=== PATIENT | male | born 1975 | race Caucasian/White ===

== ENCOUNTER 2020-05-14 15:11 | Emergency (ER) | payer BC, OTHER, SELFPAY ==
--- NOTE | ~2020-05-14 | XR_ITS ---
EXAMINATION: XR chest 2V DATE: 05/14/2020 16:06 INDICATION: Worsening heartburn and left arm numbness TECHNIQUE: PA and lateral views of the chest were obtained. COMPARISON: Chest radiograph dated 09/27/2015 FINDINGS: The lungs remain clear with no focal airspace opacities, pulmonary edema, pleural effusion or pneumot horax. The cardiomediastinal silhouette is normal. Visualized bones and soft tissues are unremarkable . IMPRESSION: 1. No acute cardiopulmonary disease. Reviewed, dictated and finalized at location A. [facility]
--- NOTE | 2020-05-14 15:21 | ECG_ITS ---
Measurements Intervals [place] Rate: 46 P: 26 IA: 235 QRS: -32 QRSD: 112 T: 40 QT: 446 QTc: 393 Interpretive Statements SINUS BRADYCARDIA WITH FIRST DEGREE AV BLOCK ATRIAL PREMATURE COMPLEXES LEFT AXIS DEVIATION INCOMPLETE RIGHT BUNDLE BRANCH BLOCK BORDERLINE R WAVE PROGRESSION, ANTERIOR LEADS ABNORMAL ECG Electronically Signed On 05-14-2020 15:29:58 [employer] by Terrance Coleman D.O.
[2020-05-14 15:27] VITALS: BP 150/86; PULSE 44; RESP 18; TEMP 36.6; O2SAT 99
[2020-05-14 15:42] LABS: Basophils Percent Auto 0.4 % (0.2-1.2); Eosinophils Absolute Auto 0.1 K/mm3 (0-0.3); Hematocrit 46.1 % (42.0-52.0); Hemoglobin 15.4 g/dL (14.0-18.0); Immature Granulocyte Absolute 0.01 K/mm3 (0.00-0.031); Immature Granulocyte Percent A 0.2 % (0-0.5); Lymphocytes Absolute Auto 2.02 K/mm3 (0.9-3.2); Lymphocytes Percent Auto 40.9 % (18.3-44.2); Mean Corpuscular HGB Conc 33.4 g/dl (32-36); Mean Corpuscular Hemoglobin 29.1 pg (26-34); Mean Corpuscular Volume 87.1 fl (80-100); Mean Platelet Volume 10.7 fl (7.4-10.4); Monocytes Absolute Auto 0.5 K/mm3 (0.1-0.6); Monocytes Percent Auto 10.3 % (2.6-8.5); Neutrophils Absolute Auto 2.3 K/mm3 (1.3-6.7); Neutrophils Percent Auto 46.2 % (45.5-73.1); Platelet Count Result 200 k/mm3 (150-375); Red Blood Count 5.29 M/mm3 (4.6-6.20); Red Cell Distribution Width 12.4 % (11.5-14.5); White Blood Count 4.9 K/mm3 (4.5-10.0)
[2020-05-14] MEDS: ASPIRIN 81 MG CHEWABLE TABLET 324 MG PO (15:50)
[2020-05-14 15:51] LABS: INR 0.9; Prothrombin Time 12.8 Seconds (11.1-14.7)
[2020-05-14 15:52] LABS: Partial Thromboplastin Time 27.2 SECONDS (22.3-36.8)
[2020-05-14 15:54] LABS: Anion Gap 6 mmol/L (8-16); Blood Urea Nitrogen 22 mg/dL (9-20); Calcium 9.1 mg/dL (8.4-10.2); Carbon Dioxide 30 mmol/L (22-30); Chloride 104 mmol/L (98-107); Estimated CRCL calculation 69 ml/min; Estimated Glomerular Filt Rate 51; Glucose 93 mg/dL (75-110); Potassium 4.1 mmol/L (3.4-5.0); Sodium 140 mmol/L (137-145)
[2020-05-14 16:04] LABS: Troponin I < 0.012 ng/mL (0.000-0.034)
[2020-05-14 16:06] VITALS: PULSE 44
[2020-05-14] MEDS: FAMOTIDINE 20 MG TABLET PO (16:32)
--- NOTE | 2020-05-14 17:11 | ED.CHESTPAIN ---
HPI - Chest Pain General Chief Complaint: Chest Pain Stated Complaint: Chest Pain Time Seen by Provider: 05/14/20 15:48 Source: patient Mode of arrival: ambulatory Limitations: no limitations History of Present Illness HPI narrative: Patient is a 44-year-old male who presents to emergency department for evaluation of midsternal chest discomfort that has been regular for 6 months described as reflux in nature has taken Tums with improvement notes increasing pain of late patient has not been seen for this patient denies any URI symptoms shortness of breath fever and is otherwise resting comfortably in the room in no distress upon arrival patient Related Data Allergies Allergy/AdvReac Type Severity Reaction Status Date / Time No Known Allergies Allergy Unknown Verified 09/27/15 10:59 [facility] Family History Family History (Updated 10/02/15 @ 08:40 by DOCTOR UNKNOWN) Other Family history of coronary artery disease Family history of lymphoma Family history of malignant neoplasm of breast in first degree relative Social History Social History Smoking status: Never smoker Alcohol intake: current Gender identity (if verbalized by the patient): Male Course Course Emergency Course: Patient evaluated for 6 months duration midsternal intermittent chest pain described as reflux related given the chronicity and duration patient will be referred back to primary care and gastroenterology for further evaluation patient will be tried on a course PPIs in the interim given reasons to return no high risk changes in the blood work or imaging or evaluation today Vital Signs Vital signs: Vital Signs Temperature 97.8 F 05/14/20 15:27 Pulse Rate 44 L 05/14/20 15:27 Respiratory Rate 18 05/14/20 15:27 Blood Pressure 150/86 H 05/14/20 15:27 Pulse Oximetry 99 05/14/20 15:27 Temperature 97.8 F 05/14/20 15:27 Pulse Rate 44 L 05/14/20 16:06 Respiratory Rate 18 05/14/20 15:27 Blood Pressure 150/86 H 05/14/20 15:27 Pulse Oximetry 99 05/14/20 15:27 MDM - Chest Pain MDM Narrative Medical decision making narrative: Patients EKGs and labs are without significant high risk changes. Cardiac risk factors were reviewed. Patient is felt likely to be low risk for ACS and reasonable for further risk stratification testing as an outpatient. Pain was not sudden or maximal in onset without tearing or ripping. quality. No other signs or symptoms to suggest aortic dissection. A low-risk Wells criteria is noted. PE is felt to be unlikely. No pneumonia or URI symptoms were seen on evaluation today. Patient is felt to be reasonable for continued evaluation as an outpatient. 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 will be referred to gastroenterology and back to primary care for further evaluation Lab Data Result diagrams: 05/14/20 15:33 05/14/20 15:33 Labs: Lab Results 05/14/20 05/14/20 05/14/20 Range/Units 15:33 15:33 15:33 WBC 4.9 (4.5-10.0) K/mm3 RBC 5.29 (4.6-6.20) M/mm3 Hgb 15.4 (14.0-18.0) g/dL Hct 46.1 (42.0-52.0) % MCV 87.1 (80-100) fl MCH 29.1 (26-34) pg MCHC 33.4 (32-36) g/dl RDW 12.4 (11.5-14.5) % Plt Count 200 (150-375) k/mm3 MPV 10.7 H (7.4-10.4) fl Immature Gran % (Auto) 0.2 (0-0.5) % Neut % (Auto) 46.2 (45.5-73.1) % Lymph % (Auto) 40.9 (18.3-44.2) % [place] % (Auto) 10.3 H (2.6-8.5) % Eos % (Auto) 2.0 (0-4.4) % Baso % (Auto) 0.4 (0.2-1.2) % Lymph # (Auto) 2.02 (0.9-3.2) K/mm3 [place] # (Auto) 0.5 (0.1-0.6) K/mm3 Eos # (Auto) 0.1 (0-0.3) K/mm3 Baso # (Auto) 0.0 (0.0-0.1) K/mm3 Abs Immat Gran (auto) 0.01 (0.00-0.031) K/mm3 Absolute Neuts (auto) 2.3 (1.3-6.7) K/mm3 Absolute Nucleated RBC 0.0 (0.0-0.012) K/mm3 Nucleated RBC % 0.0 (0.0-0.2) % PT 12.8 (11.1-14.7) Seconds INR 0.9 APTT 27.2 (22.3-36.8) SECONDS Sodium 140 (137-145) mm
[2020-05-14 18:18] VITALS: BP 121/61; PULSE 48; RESP 16; O2SAT 100
== END 2020-05-14 18:20 | disposition home or self-care (01) ==
PROVIDERS: Emergency Medicine; Emergency Provider Emergency Medicine; PCP Family Medicine
DX: R07.2 Precordial pain (principal); R00.1 Bradycardia, unspecified; I44.0 Atrioventricular block, first degree; I49.1 Atrial premature depolarization; I45.10 Unspecified right bundle-branch block; R94.31 Abnormal electrocardiogram [ECG] [EKG]
CPT/HCPCS: 36415; 71046; 80048; 84484; 85025; 85610; 85730; 93005; 99284; A9270

== ENCOUNTER 2022-09-14 23:47 | Emergency (ER) | payer BC, SELFPAY ==
--- NOTE | ~2022-09-14 | XR_ITS ---
Left Hand Technique: PA, oblique, and lateral views were obtained. Clinical History: Aspiration Findings: No acute fracture or dislocation is seen. Osseous alignment is anatomic. Joint spaces are p reserved. Soft tissues are unremarkable. Impression: Unremarkable left hand. Reviewed, dictated and finalized at location M. Impression: Unremarkable left hand.
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
--- NOTE | ~2022-09-14 | XR_ITS ---
AP view of the pelvis and AP and lateral views of the right hip Clinical history: Pain Findings: No acute fracture or dislocation is seen. Osseous alignment is anatomic. Bilateral hip and SI joint spaces are preserved. Soft tissues are unremarkable. Impression: No significant abnormality is seen. Reviewed, dictated and finalized at [facility]. Impression: No significant abnormality is seen.
--- NOTE | ~2022-09-14 | CT_ITS ---
Noncontrast CT scan of the cervical spine Technique: Multiple contiguous axial [address] images of the cervical spine were obtained and rec onstructed in 2D sagittal and coronal planes on the acquisition scanner. Dose reduction technique was used on this scan by utilizing automated exposure control, adjustment of the mA and/or kV according to patient size. Clinical History: Pain Findings: There is mild reversal normal cervical lordosis. No fracture or subluxation evident. There are mild degenerative disc changes in the cervical spine, worst at C6-C7. There is probable mild righ t neural foraminal narrowing and mild central canal stenosis at C6-C7. No prevertebral soft tissue sw elling. Impression: No fracture or subluxation of the cervical spine. Reversal of the normal cervical lordosis. [id number] degenerative spondylosis at C6-C7, as detailed above. Reviewed, dictated and finalized at [facility]. Impression: No fracture or subluxation of the cervical spine. Reversal of the normal cervical lordosis. [id number] degenerative spondylosis at C6-C7, as detailed above.
[2022-09-14 23:50] VITALS: BP 136/80; PULSE 61; RESP 18; TEMP 36.6; O2SAT 96
[2022-09-15] MEDS: ACETAMINOPHEN 500 MG TABLET 1000 MG PO (00:05)
[2022-09-15 00:34] VITALS: BP 150/77; PULSE 54; RESP 14; TEMP 36.6; O2SAT 99
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
[2022-09-15] MEDS: TETANUS,DIPHTHERIA,AC PERTUSSIS ADULT (0.5 ML) BOOSTRIX IM (00:50)
[2022-09-15 01:45] VITALS: BP 121/81; PULSE 56; RESP 15; O2SAT 96
[2022-09-15 02:31] VITALS: BP 145/50; PULSE 66; RESP 15; TEMP 36.6; O2SAT 97
== END 2022-09-15 02:32 | disposition home or self-care (01) ==
PROVIDERS: Emergency Provider Physician Assistant; PCP Family Medicine
DX: S70.01XA Contusion of right hip, initial encounter (principal); S61.412A Laceration without foreign body of left hand, initial encounter; M54.2 Cervicalgia; Z23 Encounter for immunization; Y04.8XXA Assault by other bodily force, initial encounter
CPT/HCPCS: 12001; 70450; 72125; 73130; 73502; 90471; 90715; 99284; A9270